=== PATIENT | male | born 1950 | race Caucasian/White ===

== ENCOUNTER 2019-11-23 06:30 | Outpatient (CLI) | payer MEDICARE ==
[~2019-11-23] VITALS: Ht 167 cm; Wt 67.7 kg
[2019-11-23] MEDS ORDERED: TMSL.4C PO (14:45)
[2019-11-23] MEDS ORDERED: FINA5TAB6 PO (14:45)
[2019-11-23] MEDS ORDERED: ZOLP10TA PO (14:45)
[2019-11-23] MEDS ORDERED: DOXA2TAB2 PO (14:45)
[2019-11-23] MEDS ORDERED: TRAM50TA3 PO (14:45)
[2019-11-23] MEDS ORDERED: CARV12.53 PO (14:45)
[2019-11-23] MEDS ORDERED: AMLO5TAB9 PO (14:45)
[2019-11-23] MEDS ORDERED: HYDR-4226 PO (14:45)
== END 2019-11-23 08:00 | disposition home or self-care (01) ==
LOC: PREOP 06:30
PROVIDERS: ATTEND Surgery
DX: Z01.818 Encounter for other preprocedural examination (principal)

== ENCOUNTER 2019-11-25 07:28 | Day surgery (SDC) | payer MEDICARE, OTHER ==
[~2019-11-25] VITALS: Ht 167 cm; Wt 67.7 kg
[2019-11-25] VITALS (11 sets, daily range): BP systolic 115–168; BP diastolic 61–89
[~2019-11-25 07:28] MED LIST: AMLO5TAB9 PO; CARV12.53 PO; DOXA2TAB2 PO; FINA5TAB6 PO; HYDR-4226 PO; TMSL.4C PO; TRAM50TA3 PO; ZOLP10TA PO
--- OUTSIDE RECORDS SUMMARY | 2019-11-25 07:32 | XMS REPORT | Continuity of Care Document ---
Author Organization Unknown Address Unknown Phone Unavailable Allergies Active Description Code Type Severity Reaction Onset Reported/Identified Relationship to Patient Clinical Status Yes NSAIDS (Non-Steroidal Anti-Inflamma [id number] Drug Allergy Severe KIDNEY DISEASE 11/23/2019 Medications There is no data. Problems Date Dx Coded Attending Type Code Diagnosis Diagnosed By 11/23/2019 JENNIFER PERSAUD DO Ot Z01.818 ENCOUNTER FOR OTHER PREPROCEDURAL EXAMIN 11/24/2019 JENNIFER PERSAUD DO Ot Z01.818 ENCOUNTER FOR OTHER PREPROCEDURAL EXAMIN Procedures There is no data. Results There is no data. Encounters ACCT No. Visit Date/Time Discharge Status Pt. Type Provider Facility Loc./Unit Complaint [id number] 11/23/2019 06:30:00 020 08:00:00 DIS Outpatient JENNIFER PERSAUD DO Via [facility] PREOP ANAL MASS [id number] 11/25/2019 09:30:00 P EN Preadmit JENNIFER PERSAUD DO Via [facility] SDC ANAL MASS
[2019-11-25] MEDS ORDERED: LACTATED RINGERS 1,000 ML IV PRN (08:40)
[2019-11-25] MEDS ORDERED: fentaNYL INJECTION 100 MCG/2 ML AMP ONE (09:25)
[2019-11-25] MEDS ORDERED: MIDAZOLAM 2 MG/2 ML (VERSED) VIAL ONE (09:25)
[2019-11-25] MEDS ORDERED: BUP/EPI 0.5% 1:200,000 (SENSORCAINE) 30 ML VIAL ONE (09:29)
--- NOTE | 2019-11-25 09:52 | Progress Note-Pre Operative ---
Pre-Operative Progress Note H&P Reviewed The H&P was reviewed, patient examined and no changes noted. Date Seen by Provider: Nov 25, 2019 Time Seen by Provider: 09:51 Date H&P Reviewed: Nov 25, 2019 Time H&P Reviewed: 09:51 Pre-Operative Diagnosis: anal mass JENNIFER PERSAUD DO Nov 25, 2019 09:52
[2019-11-25] MEDS ORDERED: SEVOFLURANE (ULTANE) 15 ML INHAL SOLN ONE ×3 (10:01→10:31)
[2019-11-25] MEDS ORDERED: LIDOCAINE PF 2% 5 ML (XYLOCAINE) VIAL ONE (10:01)
[2019-11-25] MEDS ORDERED: ONDANSETRON 4 MG/2 ML (SDV) Z0FRAN ONE (10:01)
[2019-11-25] MEDS ORDERED: proPOfol 200 MG/20 ML (DIPRIVAN) VIAL IV ONE (10:01)
[2019-11-25] MEDS ORDERED: MEPERIDINE (DEMEROL) INJ 50 MG/ML IVP ONE (10:45)
[2019-11-25] MEDS ORDERED: morphine INJ 10 MG/ML 1ML (SYR OR VIAL) IVP ONE (10:45)
[2019-11-25] MEDS ORDERED: ONDANSETRON 4 MG/2 ML (SDV) Z0FRAN IVP PRN (10:45)
[2019-11-25] MEDS ORDERED: fentaNYL INJECTION 100 MCG/2 ML AMP IVP ONE (10:45)
[2019-11-25] MEDS ORDERED: HYDROcodone/APAP 5 MG/325 MG (LORTAB) TAB ONE (11:43)
--- NOTE | 2019-11-25 11:51 | Progress Note-Post Operative ---
Post-Operative Progess Note Surgeon (s)/Chronic Care Nurse (s) Surgeon JENNIFER PERSAUD DO Chronic Care Nurse: na Pre-Operative Diagnosis anal mass Post-Operative Diagnosis small anal mass 6 o'clock with slight ulceration/stricure Procedure & Operative Findings Date of Procedure 11/25/19 Procedure Performed/Findings exam under anesthesia, excision of anal mass Anesthesia Type gen Estimated Blood Loss Estimated blood loss (mL): minimal Specimens/Packing Specimens Removed anal mass JENNIFER PERSAUD DO Nov 25, 2019 11:51
[2019-11-25] MEDS ORDERED: HYDR-4226 PO (11:57)
--- NOTE | 2019-11-25 11:58 | Discharge Inst-Simple/Standard ---
Discharge Inst-Standard Discharge Medications New, Converted or Re-Newed RX: RX on Chart Patient Instructions/Follow Up Plan of Care/Instructions/FU: 2 weeks Debby Activity as Tolerated: No Discharge Diet: Regular Diet Other Inst to Patient Follow up Appt: Make appointment for 2 week. Instructions: No lifting greater than 10 pounds. No strenuous activity. May shower in 24 hours, no tub bath or soaking. Use incentive spirometer at home as directed. No Smoking Skin/Wound Care: Keep area clean and dry. Use sitz bath 2-3 times per day. Symptoms to Report: Appetite Changes, Extremity Discoloration, Numbness/Tingling, Swelling Increased, Bleeding Excessive, Eyesight Changes, Pain Increased, Urine Color Change, Constipation(Persistent), Fever over 101 degree F, Pain/Pressure in chest, Urinating Difficulty, Cough Up/Vomit Blood, Heart Beat Irreg/Pounding, Pain/Pressure in jaw, Vaginal Bleeding Increase, Cramps in feet or legs, Lightheadedness, Pain/Pressure in shoulder, Diarrhea(Persistent), Memory Changes Suddenly, Questions/Concerns, Weight gain consecutive days, Dizziness/Fainting, Nausea/Vomiting, Shortness of Breath, Weight gain over 2 pounds If questions or concerns contact your physician Or seek help at emergency department. JENNIFER PERSAUD DO Nov 25, 2019 11:58
[2019-11-25] MEDS ORDERED: HYDROcodone/APAP 5 MG/325 MG (LORTAB) TAB PO ONE (12:00)
--- NOTE | 2019-11-25 15:01 | OPERATIVE REPORT ---
DATE OF SERVICE: 11/25/2019 PREOPERATIVE DIAGNOSIS: Anal mass. POSTOPERATIVE DIAGNOSIS: Anal mass, stricture with slight ulceration. PROCEDURE: Exam under anesthesia, excision of anal mass. SURGEON: Jennifer Guardado DO ANESTHESIA: General. ESTIMATED BLOOD LOSS: Minimal. COMPLICATIONS: None. INDICATIONS: The patient is a 69-year-old male, who has a history of ulcerative colitis and had total colectomy with end ileostomy. The patient has been having some bleeding from the anus and mucus. He also with prostatitis and having significant pain and was unable to be examined in the office. The patient was discussed risks and benefits of procedure and wished to proceed with procedure. Consent was signed in the chart. DESCRIPTION OF PROCEDURE: The patient was taken to the operating suite, was prepped and draped in sterile fashion. Timeout was performed. He was in lithotomy position. A digital rectal exam was performed noting a 6 o'clock position a small anal mass. There was also slight stricture just in the beginning of the anal verge, which was dilated and the anal canal opened, which had an ending at the end of the anus. Some bleeding with exam. Retractor was able to be inserted into opening of the anal canal, loss of irrigation was used demonstrating the anal mass at the 6 o'clock position. This was grasped, elevated and a Harmonic focus was used to excise the mass and hemostasis was achieved. There were some slight ulceration right at the level of the mass just posterior to it. The wound was packed after it was irrigated. No other pathology was noted. Gelfoam and Vaseline pack was used. The area was washed and dried and sterile bandage was applied. The patient tolerated procedure well without any complications. RECOMMENDATIONS: The patient will see how he is doing in approximately 2 weeks and follow up on pathology. Any significant bleeding prior to follow up should be reevaluated at that time. May need repeat exam and biopsy. Could also consider MRI for further evaluation as well. Job ID: [id number] DocumentID: [id number] Dictated Date: 11/25/2019 11:52:46 Diet Supervisor Date: 11/25/2019 15:00:30 Dictated By: JENNIFER GUARDADO DO
--- NOTE | 2019-11-25 16:50 | Anesthesia-General Post-Op ---
General Patient Condition Mental Status/LOC: Same as Preop Cardiovascular: Satisfactory Nausea/Vomiting: Absent Respiratory: Satisfactory Pain: Controlled Complications: Absent Post Op Complications Complications None Follow Up Care/Instructions Patient Instructions None needed. Anesthesia/Patient Condition Patient Condition Patient is doing well, no complaints, stable vital signs, no apparent adverse anesthesia problems. No complications reported per nursing. WENDY SOUSA CRNA Nov 25, 2019 16:50
== END 2019-11-25 12:45 | disposition home or self-care (01) ==
LOC: SDC 07:28
PROVIDERS: ATTEND Surgery
DX: C44.520 Squamous cell carcinoma of anal skin (principal); K62.4 Stenosis of anus and rectum; M19.90 Unspecified osteoarthritis, unspecified site; I12.0 Hypertensive chronic kidney disease with stage 5 chronic kidney disease or end stage renal disease; N18.6 End stage renal disease; N41.9 Inflammatory disease of prostate, unspecified; Z79.899 Other long term (current) drug therapy; Z88.6 Allergy status to analgesic agent; Z82.3 Family history of stroke
CPT/HCPCS: 87081; 88305; 88341; 88342

== ENCOUNTER → 2019-12-15 | Outpatient (CLI) | payer MEDICARE, OTHER ==
[~2019-12-15] MED LIST changes: +BARIUM SUSPENSION 2.1% (VANILLA SILQ) 450 ML PO ONE; +HOLD METFORMIN - RECEIVED CONTRAST 20 ML VIAL IV SCH; +IOHEXOL 350 MG/ML 100 ML (OMNIPAQUE 350) VIAL IV ONE; +NS 100 ML (IVPB) BAG IV ONE
--- NOTE | 2019-12-15 12:41 | Diagnostic Imaging Report ---
PROCEDURE: CT chest, abdomen, and pelvis with contrast. TECHNIQUE: Multiple contiguous axial images were obtained through the chest, abdomen, and pelvis after the administration of intravenous contrast. Auto Exposure Controls were utilized during the CT exam to meet ALARA standards for radiation dose reduction. 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 Followup exam. No treatment yet. COMPARISON STUDY: Noncontrast CT of the abdomen and pelvis from [place] dated 09/15/2019. FINDINGS: A calcified granuloma is present in the right middle lobe. On axial image 118 of 154, there is a 7 mm nodule medially in the posterior sulcus. This was not seen before and could be a real mass or rounded atelectasis.. Given its location, this is most likely an area of rounded atelectasis. Recommend a 3 month followup. No abnormal adenopathy is present. Mild calcifications are present in the coronary arteries. Multiple hypodensities are now seen within the liver. These are not definitely identified on the previous exam but the previous exam was done without contrast. There is suggestion of several nodules on the noncontrast study. The largest nodule measures 5.3 cm. Small hypodensities are present in the spleen which are probably cysts. A gallstone is present. The adrenal glands appear normal. Small cysts are present within the kidneys. The colon has been resected. There is a rectal stump still present. Above the rectal stump, there are some increasing irregular soft tissue densities which are probably due to adenopathy. No ascites, free air, or loculated fluid collections are present. Degenerative changes are present in the spine. No osseous metastasis is present. IMPRESSION: 1. There are multiple liver lesions consistent with metastatic disease. 2. There has been development of a nodule in the medial aspect of the right posterior sulcus which could be metastatic disease or more likely rounded atelectasis. 3. Status post colon resection with a rectal stump still present. Increasing soft tissue is seen at the top of the stump. Dictated by: Dictated on workstation # [id number]
== END ==
LOC: RAD 11:24
PROVIDERS: ATTEND Internal Medicine Hematology & Oncology
DX: C44.520 Squamous cell carcinoma of anal skin (principal); K76.9 Liver disease, unspecified; R91.8 Other nonspecific abnormal finding of lung field
CPT/HCPCS: 71260; 74177

== ENCOUNTER 2019-12-23 08:14 | Outpatient (CLI) | payer MEDICARE, OTHER ==
[2019-12-23] VITALS (13 sets, daily range): BP systolic 119–168; BP diastolic 55–89
[~2019-12-23] VITALS: Ht 167 cm; Wt 67.7 kg
[~2019-12-23 08:14] MED LIST changes: -BARIUM SUSPENSION 2.1% (VANILLA SILQ) 450 ML PO ONE; -HOLD METFORMIN - RECEIVED CONTRAST 20 ML VIAL IV SCH; -IOHEXOL 350 MG/ML 100 ML (OMNIPAQUE 350) VIAL IV ONE; -NS 100 ML (IVPB) BAG IV ONE
[2019-12-23] MEDS ORDERED: NS IV 1000 ML 1,000 ML IV STA (08:22)
[2019-12-23] MEDS ORDERED: LIDOCAINE 1% INJ 20 ML 20 ML VIAL INJ ONE (08:30)
[2019-12-23] MEDS ORDERED: MIDAZOLAM 2 MG/2 ML (VERSED) VIAL IVP ONE (08:30)
[2019-12-23] MEDS ORDERED: fentaNYL INJECTION 100 MCG/2 ML AMP IVP ONE (08:30)
[2019-12-23] MEDS ORDERED: NS IV 1000 ML 1,000 ML ONE (08:48)
[2019-12-23] MEDS ORDERED: fentaNYL INJECTION 100 MCG/2 ML AMP ONE (08:48)
[2019-12-23] MEDS ORDERED: LIDOCAINE 1% INJ 20 ML 20 ML VIAL ONE (08:48)
[2019-12-23] MEDS ORDERED: MIDAZOLAM 2 MG/2 ML (VERSED) VIAL ONE (08:48)
[2019-12-23 08:50] LABS: HEMOGLOBIN 13.8 G/DL (13.3-17.7); MEAN PLATELET VOLUME 9.9 FL (7.4-10.4); RED CELL DISTRIBUTION WIDTH 12.5 % (10.0-14.5); WHITE BLOOD COUNT 7.3 10^3/uL (4.3-11.0)
[2019-12-23 09:01] LABS: INR 1.1 (0.8-1.4); PROTHROMBIN TIME PATIENT 14.2 SEC (12.2-14.7)
--- NOTE | 2019-12-23 10:29 | Pre-Op Note & Conscious Sedat ---
Pre-Operative Progress Note H&P Reviewed The H&P was reviewed, patient examined and no changes noted. Date H&P Reviewed: Dec 23, 2019 Time H&P Reviewed: 09:00 Pre-Op Diagnosis: Liver mass Conscious Sedation Pre-Proced Time 09:00 ASA Score 2 For ASA 3 and 4: Consider anesthesia and medical clearance. Also, for patients with a history of failed moderate sedation consider anesthesia. Airway Lungs Heart ASA score ASA 1: a normal healthy patient ASA 2: a patient with a mild systemic disease (mid diabetes, controlled hypertension, obesity ASA 3: a patient with a severe systemic disease that limits activity (angina, COPD, prior Myocardial infarction) ASA 4: a patient with an incapacitating disease that is a constant threat to life (CHF, renal failure) ASA 5: a moribund patient not expected to survive 24 hrs. (ruptured aneurysm) ASA 6: a declared brain- patient whose organs are being harvested. For emergent operations, add the letter E after the classification Mallampati Classification Grade 2 Sedation Plan Analgesia, Amnesia, Plan communicated to team members, Discussed options with patient/fam, Discussed risks with patient/fam The patient is an appropriate candidate to undergo the planned procedure, sedation, and anesthesia. The patient immediately re-assessed prior to indication. ARIADNE TODD MD Dec 23, 2019 10:29
--- NOTE | 2019-12-23 10:45 | NUR ---
PATIENT'S SIGNIFICANT OTHER STATES THE PATIENT TOOK OWN SUPPLY OF HYDROCODONE AT 1045.
--- NOTE | 2019-12-23 10:50 | Diagnostic Imaging Report ---
INDICATION: LIVER MASS, ANAL CANCER TECHNIQUE: All CT scans use one or more of the following dose optimizing techniques: automated exposure control, MA and/or KvP adjustment based on a patient size and exam type, or iterative reconstruction. The patient was brought to the CT suite, placed on the table in the supine position. Axial imaging through the abdomen was performed to evaluate appropriate entry site. The right abdomen was prepped and draped in the usual sterile fashion. The procedure was performed utilizing conscious sedation with radiology nursing and constipation monitoring. The patient was administered a total of 100 mcg of fentanyl intravenously and 1 mg of Versed intravenously. Total procedure time: 8 minutes. A small amount of 1% lidocaine was utilized for local anesthesia. An 18-gauge coaxial Temno needle was advanced into the dominant right lobe liver mass. Multiple core biopsies were obtained. The needle was removed during the injection of a blood patch. Hemostasis was obtained using manual compression. The patient tolerated the procedure well and left the department in stable condition. IMPRESSION: CT-guided liver mass biopsy utilizing conscious sedation. Pathology results are currently pending. Dictated by: Dictated on workstation # [id number]
== END 2019-12-23 13:20 | disposition home or self-care (01) ==
LOC: SDC 08:14
PROVIDERS: ATTEND Internal Medicine Hematology & Oncology
DX: C61 Malignant neoplasm of prostate (principal); C21.0 Malignant neoplasm of anus, unspecified; R16.0 Hepatomegaly, not elsewhere classified
CPT/HCPCS: 36415; 77012; 85027; 85610; 85730; 88307; 88341; 88342; 88344; 99156

== ENCOUNTER → 2020-01-11 | Outpatient (CLI) | payer MEDICARE, OTHER ==
--- NOTE | 2020-01-11 16:47 | Diagnostic Imaging Report ---
EXAMINATION: Whole body Nuclear Medicine bone scan at 2:10 PM. INDICATION: Prostate carcinoma. TECHNIQUE: This study was performed following the administration of 26.1 mCi of 99M technetium MDP. Anterior and posterior whole body images were obtained as well as spot lateral film of the skull and thorax. COMPARISON: There are no prior Nuclear Medicine bone exams available for comparison. The CT chest, abdomen, and pelvis exam of 12/15/2019 did show metastatic disease involving the liver. There also appeared to be sclerosis of the right iliac bone in the midportion of the sacrum. FINDINGS: On this exam, there is intense uptake throughout the right iliac bone adjacent to the sacroiliac joint. There is also abnormal uptake in the mid body of the sacrum. In addition, there is a small focus of abnormal uptake along the superolateral aspect of the acetabulum on the right. There is also a minute focus of increased uptake near the costovertebral junction of the left 11th rib. All of these findings should be considered secondary to metastatic disease until proven otherwise. There is another area of abnormal uptake along the right lateral aspect of the base of the cervical spine. This, too, could be related to metastatic disease. This could be secondary to degenerative disease as well. There is no other abnormal uptake to suggest metastatic disease. Both kidneys do show excretion of the radiotracer. IMPRESSION: 1. There is a prominent area of abnormal uptake involving the right ilium adjacent to the sacroiliac joint. There is also abnormal uptake within the mid body of the sacrum, right ischium, and left 11th rib. All of these findings should be considered secondary to metastatic disease until proven otherwise. 2. The abnormal uptake in the lower cervical spine on the right is of uncertain etiology. If further imaging is desired, then MRI would be recommended. Dictated by: Dictated on workstation # [id number]
== END ==
LOC: CARD 11:04
PROVIDERS: ATTEND Nurse Practitioner Family
DX: C61 Malignant neoplasm of prostate (principal)
CPT/HCPCS: 78306

== ENCOUNTER 2020-02-16 13:19 | Outpatient (RCR) | payer MEDICARE, OTHER ==
[2019-12-09 13:54] LABS: BASOPHILS % (AUTO) 1 % (0-10); EOSINOPHILS # (AUTO) 0.1 10^3/uL (0.0-0.3); EOSINOPHILS % (AUTO) 2 % (0-10); HEMATOCRIT 39 % (40-54); HEMOGLOBIN 13.4 G/DL (13.3-17.7); LYMPHOCYTES # (AUTO) 0.8 X 10^3 (1.0-4.0); LYMPHOCYTES % (AUTO) 12 % (12-44); MEAN CORPUSCULAR HEMOGLOBIN 29 PG (25-34); MEAN CORPUSCULAR HGB CONC 34 G/DL (32-36); MEAN CORPUSCULAR VOLUME 85 FL (80-99); MEAN PLATELET VOLUME 9.6 FL (7.4-10.4); MONOCYTES # (AUTO) 0.7 X 10^3 (0.0-1.0); MONOCYTES % (AUTO) 10 % (0-12); NEUTROPHILS % (AUTO) 76 % (42-75); PLATELET COUNT 200 10^3/uL (130-400); RED CELL DISTRIBUTION WIDTH 12.7 % (10.0-14.5); WHITE BLOOD COUNT 6.5 10^3/uL (4.3-11.0)
[2019-12-09 14:13] LABS: ALBUMIN 4.4 GM/DL (3.2-4.5); BILIRUBIN,TOTAL 0.5 MG/DL (0.1-1.0); CALCIUM 9.2 MG/DL (8.5-10.1); CREATININE SERUM 1.25 MG/DL (0.60-1.30); POTASSIUM 3.9 MMOL/L (3.6-5.0); TOTAL PROTEIN 7.1 GM/DL (6.4-8.2)
[2020-01-04 11:07] LABS: BASOPHILS % (AUTO) 0 % (0-10); EOSINOPHILS # (AUTO) 0.1 10^3/uL (0.0-0.3); EOSINOPHILS % (AUTO) 1 % (0-10); HEMATOCRIT 39 % (40-54); HEMOGLOBIN 13.3 G/DL (13.3-17.7); LYMPHOCYTES # (AUTO) 0.6 X 10^3 (1.0-4.0); LYMPHOCYTES % (AUTO) 9 % (12-44); MEAN CORPUSCULAR HEMOGLOBIN 30 PG (25-34); MEAN CORPUSCULAR HGB CONC 34 G/DL (32-36); MEAN CORPUSCULAR VOLUME 86 FL (80-99); MEAN PLATELET VOLUME 9.8 FL (7.4-10.4); MONOCYTES # (AUTO) 0.5 X 10^3 (0.0-1.0); MONOCYTES % (AUTO) 8 % (0-12); NEUTROPHILS # (AUTO) 5.2 X 10^3 (1.8-7.8); NEUTROPHILS % (AUTO) 82 % (42-75); PLATELET COUNT 183 10^3/uL (130-400); RED CELL DISTRIBUTION WIDTH 12.6 % (10.0-14.5); WHITE BLOOD COUNT 6.4 10^3/uL (4.3-11.0)
[2020-01-04 11:28] LABS: ALBUMIN 4.2 GM/DL (3.2-4.5); BILIRUBIN,TOTAL 0.6 MG/DL (0.1-1.0); CALCIUM 9.3 MG/DL (8.5-10.1); CREATININE SERUM 1.41 MG/DL (0.60-1.30); POTASSIUM 4.4 MMOL/L (3.6-5.0); TOTAL PROTEIN 6.9 GM/DL (6.4-8.2)
[2020-02-16 13:42] LABS: BASOPHILS % (AUTO) 0 % (0-10); EOSINOPHILS # (AUTO) 0.2 10^3/uL (0.0-0.3); EOSINOPHILS % (AUTO) 3 % (0-10); HEMATOCRIT 35 % (40-54); HEMOGLOBIN 12.2 G/DL (13.3-17.7); LYMPHOCYTES # (AUTO) 0.3 X 10^3 (1.0-4.0); LYMPHOCYTES % (AUTO) 5 % (12-44); MEAN CORPUSCULAR HEMOGLOBIN 30 PG (25-34); MEAN CORPUSCULAR HGB CONC 35 G/DL (32-36); MEAN CORPUSCULAR VOLUME 87 FL (80-99); MEAN PLATELET VOLUME 9.4 FL (7.4-10.4); MONOCYTES # (AUTO) 0.6 X 10^3 (0.0-1.0); MONOCYTES % (AUTO) 11 % (0-12); NEUTROPHILS # (AUTO) 4.8 X 10^3 (1.8-7.8); NEUTROPHILS % (AUTO) 82 % (42-75); PLATELET COUNT 153 10^3/uL (130-400); RED CELL DISTRIBUTION WIDTH 12.5 % (10.0-14.5); WHITE BLOOD COUNT 5.9 10^3/uL (4.3-11.0)
[2020-02-16 14:02] LABS: ALBUMIN 4.1 GM/DL (3.2-4.5); BILIRUBIN,TOTAL 0.5 MG/DL (0.1-1.0); CALCIUM 9.2 MG/DL (8.5-10.1); CREATININE SERUM 1.42 MG/DL (0.60-1.30); POTASSIUM 4.1 MMOL/L (3.6-5.0); TOTAL PROTEIN 6.7 GM/DL (6.4-8.2)
== END 2020-03-08 | disposition home or self-care (01) ==
LOC: ONC 13:19
PROVIDERS: ATTEND Internal Medicine Hematology & Oncology
DX: C44.520 Squamous cell carcinoma of anal skin (principal)
CPT/HCPCS: 80053; 82378; 85025; G0463; 82728; 83540; 84153; 84403; 99204; 99213; 99214

== ENCOUNTER 2020-05-22 14:04 | Outpatient (RCR) | payer MEDICARE, OTHER ==
[2020-03-15 14:30] LABS: BASOPHILS % (AUTO) 0 % (0-10); EOSINOPHILS # (AUTO) 0.1 10^3/uL (0.0-0.3); EOSINOPHILS % (AUTO) 2 % (0-10); HEMATOCRIT 34 % (40-54); HEMOGLOBIN 11.5 G/DL (13.3-17.7); LYMPHOCYTES # (AUTO) 0.4 X 10^3 (1.0-4.0); LYMPHOCYTES % (AUTO) 8 % (12-44); MEAN CORPUSCULAR HEMOGLOBIN 30 PG (25-34); MEAN CORPUSCULAR HGB CONC 34 G/DL (32-36); MEAN CORPUSCULAR VOLUME 87 FL (80-99); MEAN PLATELET VOLUME 9.5 FL (7.4-10.4); MONOCYTES # (AUTO) 0.6 X 10^3 (0.0-1.0); MONOCYTES % (AUTO) 11 % (0-12); NEUTROPHILS # (AUTO) 4.1 X 10^3 (1.8-7.8); NEUTROPHILS % (AUTO) 79 % (42-75); PLATELET COUNT 146 10^3/uL (130-400); WHITE BLOOD COUNT 5.2 10^3/uL (4.3-11.0)
[2020-03-15 14:52] LABS: ALBUMIN 4.2 GM/DL (3.2-4.5); BILIRUBIN,TOTAL 0.5 MG/DL (0.1-1.0); CALCIUM 9.4 MG/DL (8.5-10.1); CREATININE SERUM 1.38 MG/DL (0.60-1.30); POTASSIUM 4.3 MMOL/L (3.6-5.0); TOTAL PROTEIN 6.6 GM/DL (6.4-8.2)
== END 2020-06-13 | disposition home or self-care (01) ==
LOC: ONC 14:04
PROVIDERS: ATTEND Internal Medicine Hematology & Oncology
DX: C61 Malignant neoplasm of prostate (principal); K62.5 Hemorrhage of anus and rectum; N18.30 Chronic kidney disease, stage 3 unspecified; K76.9 Liver disease, unspecified; G93.89 Other specified disorders of brain
CPT/HCPCS: 80053; 84153; 85025; G0463; 99213

== ENCOUNTER → 2020-06-19 | Outpatient (CLI) | payer MEDICARE, OTHER ==
[~2020-06-19] MED LIST changes: +HOLD METFORMIN - RECEIVED CONTRAST 20 ML VIAL IV SCH; +IOHEXOL 350 MG/ML 100 ML (OMNIPAQUE 350) VIAL IV ONE; +NS 100 ML (IVPB) BAG IV ONE
[2020-06-19] MEDS: CATHETER FLUSH 10 ML SYR IV PRN ×2 (10:57→11:43)
[2020-06-19 11:19] LABS: CREATININE SERUM 1.36 MG/DL (0.60-1.30)
--- NOTE | 2020-06-19 12:56 | Diagnostic Imaging Report ---
PROCEDURE: CT abdomen and pelvis with contrast. TECHNIQUE: Multiple contiguous axial images were obtained through the abdomen and pelvis after administration of intravenous contrast. Auto Exposure Controls were utilized during the CT exam to meet ALARA standards for radiation dose reduction. All CT scans use one or more of the following dose optimizing techniques: automated exposure control, MA and/or KvP adjustment based on patient size and exam type or iterative reconstruction. INDICATION: Prostate carcinoma. Correlation is made with prior CT from 12/15/2019. FINDINGS: The lung bases are clear of acute infiltrates. Trace bilateral pleural effusions are noted. No nodules or mass is detected. There are innumerable low-density solid-appearing masses throughout both lobes of the liver. Majority of these appear to be increased since prior exam. Dominant mass in the dome of the right lobe measures approximately 9 cm compared with 4 cm on prior exam. A majority of the liver lesions have all increased. No bile duct dilatation is seen. The pancreas is unremarkable. Small low-density spleen appears stable. No adrenal mass is identified. Kidneys contain small cortical low densities, similar to prior exam. May represent small cysts. Aorta is calcified but not aneurysmal. No central retroperitoneal or mesenteric lymphadenopathy is seen. There are postsurgical changes in the abdomen. There is an ostomy in the right lower quadrant. There appear to be post surgical changes of total colectomy. No bowel obstruction is seen. There is no free fluid or fluid collection. Bladder and prostate are unremarkable. There is a fat-containing left inguinal hernia. No definite pelvic lymphadenopathy is seen. There is dense sclerosis of the right iliac bone as well as portions of the sacrum suggestive of osteoblastic metastases. There are multiple sclerotic lesions in the lower thoracic and lower lumbar spine as well which may be metastatic. IMPRESSION: 1. Trace bilateral pleural effusions. 2. Increase in size and number of multiple hepatic masses consistent with worsening hepatic metastatic disease. 3. Postsurgical changes to the abdomen and pelvis. 4. Fat-containing left inguinal hernia. 5. 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 Dictated by: Dictated on workstation # [id number]
--- NOTE | 2020-06-19 15:18 | Diagnostic Imaging Report ---
INDICATION: Prostate carcinoma. TECHNIQUE: The patient was administered 25.9 mCi of technetium 99m MDP intravenously and whole-body imaging was performed after a 3 hour delay. COMPARISON: Correlation is made with the prior whole body bone scan from 01/11/2020. FINDINGS: There is uptake of activity by the kidneys with excretion into the urinary bladder. There is uptake within the axial and appendicular skeleton. Intense uptake involving the right aspect of the iliac bone near the SI joint is again noted. The overall intensity has decreased since the prior exam. Only mild uptake in the mid sacrum is seen on today's exam. There is a small focus of increased uptake involving the left iliac bone near the crest medially. This is new since the prior exam. Mild uptake involving the lower right aspect of the cervical spine is similar to the prior exam. The small focus of uptake at the costovertebral junction of the 11th rib on the left side is no longer appreciated. The long bones are unremarkable. There are some degenerative changes involving the bilateral wrists. IMPRESSION: The previously noted intense uptake involving the right iliac bone and sacrum has improved since the prior bone scan. There is a tiny new focus involving the left iliac, as described. No other new abnormality is detected. Dictated by: Dictated on workstation # [id number]
== END ==
LOC: CARD 11:00
PROVIDERS: ATTEND Radiology Radiation Oncology
DX: J90 Pleural effusion, not elsewhere classified (principal); C61 Malignant neoplasm of prostate; K40.90 Unilateral inguinal hernia, without obstruction or gangrene, not specified as recurrent; M89.8X8 Other specified disorders of bone, other site; R16.0 Hepatomegaly, not elsewhere classified; Z98.890 Other specified postprocedural states
CPT/HCPCS: 74177; 78306; 82565; 84520; A9503; 36415

== ENCOUNTER 2020-07-20 13:49 | Outpatient (RCR) | payer MEDICARE, OTHER ==
[~2020-07-20 13:49] MED LIST changes: +AMLO-250 PO; -AMLO5TAB9 PO; -HOLD METFORMIN - RECEIVED CONTRAST 20 ML VIAL IV SCH; -IOHEXOL 350 MG/ML 100 ML (OMNIPAQUE 350) VIAL IV ONE; -NS 100 ML (IVPB) BAG IV ONE
== END 2020-10-04 | disposition home or self-care (01) ==
LOC: ONC 13:49
PROVIDERS: ATTEND Internal Medicine Hematology & Oncology
DX: C61 Malignant neoplasm of prostate (principal); G93.89 Other specified disorders of brain; K62.89 Other specified diseases of anus and rectum; N18.30 Chronic kidney disease, stage 3 unspecified; I12.9 Hypertensive chronic kidney disease with stage 1 through stage 4 chronic kidney disease, or unspecified chronic kidney disease; K62.5 Hemorrhage of anus and rectum; K76.9 Liver disease, unspecified; R16.0 Hepatomegaly, not elsewhere classified; Z87.19 Personal history of other diseases of the digestive system; Z93.2 Ileostomy status
CPT/HCPCS: 99213